=== PATIENT | female | born 1965 | race Caucasian/White ===

== ENCOUNTER 2018-12-27 17:06 | Observation (INO) | payer BC ==
[2018-12-27] MEDS: fentaNYL 100 MCG/2 ML SDV IVPUSH ONE ×3 (17:42→20:17)
[2018-12-27] MEDS: Lactated Ringers 1,000 ML IV SCH (17:43)
[2018-12-27] MEDS: Ondansetron 4 MG/2 ML SDV IVPUSH ONE (17:44)
[2018-12-27 17:52] LABS: CHLORIDE,CL 102 mmol/L (98-107); SODIUM,NA 140 mmol/L (136-145)
[2018-12-27 19:07] VITALS: BP 152/87; PULSE 61
[2018-12-27] MEDS: Sodium Chloride 0.9% 10 ML Syringe FLUSH PRN (20:17)
--- NOTE | 2018-12-27 23:56 | PCM.HP.2 ---
H&P History of Present Illness - General Date of Service: 12/27/18 Admit Problem/Dx: Admission Diagnosis/Problem Admission Diagnosis/Problem Abdominal pain in female Source of Information: Patient, Old Records, Significant Other () History Limitations: Reports: No Limitations - History of Present Illness Onset of Symptoms: Reports: Today, Sudden Symptom Onset Date: 12/27/18 Symptom Onset Time: 12:00 Duration of Symptoms: Reports: Hour(s):, Getting Worse, Other ( pressure in abdomen, feels like stomach will explode) Location: Reports: Abdomen Quality: Reports: Pressure Severity: Severe Improves with: Reports: Immobilization, Rest Worsens with: Reports: Eating Associated Symptoms: Reports: Weakness - Related Data Allergies/Adverse Reactions: Allergies Allergy/AdvReac Type Severity Reaction Status Date / Time zolpidem [From Ambien] Allergy unknown Verified 12/27/18 17:42 Home Medications: Home Meds Temazepam [Restoril] 15 mg PO BEDTIME PRN 03/06/14 [History] buPROPion [Wellbutrin XL] 150 mg PO BID 03/06/14 [History] Aspirin [Ecotrin EC] 81 mg PO Q3D 04/07/16 [History] Cyanocobalamin (Vitamin B-12) [Cyanocobalamin Injection] 1,000 mcg IJ ASDIRECTED 04/07/16 [History] Multivitamin [Multi-Vitamin Daily] 1 tab PO DAILY 04/07/16 [History] Aspirin 1 tab PO Q72H 12/27/18 [History] B&C/FA/Zinc/Copper Oxide/Vit E [Stress B-Complex Tablet] 1 tab PO DAILY [History] Biotin/Keratin [Biotin Plus Keratin Tablet] 1 tab PO DAILY 12/27/18 [History] Calc/D3/Mag/Zn/Forge Operator/Juan/Badger [Calcium 600 MG Plus Vit D] 1 each PO DAILY [History] Cholecalciferol (Vitamin D3) [Vitamin D3] 400 mg PO DAILY 12/27/18 [History] Cyanocobalamin (Vitamin B-12) [Vitamin B-12] 1,000 mcg IM ASDIRECTED 12/27/18 [ History] DULoxetine HCl [Duloxetine HCl] 1 cap PO DAILY 12/27/18 [History] Famciclovir 1 tab PO TID PRN 12/27/18 [History] Iron,Carbonyl [Iron Chews] 1 tab PO BID 12/27/18 [History] Lisinopril 1 tab PO DAILY 12/27/18 [History] Melatonin 10 mg PO BEDTIME 12/27/18 [History] Metoprolol Succinate 25 mg PO DAILY 12/27/18 [History] Naltrexone 25 mg PO BID 12/27/18 [History] Tolterodine Tartrate [Tolterodine Tartrate ER] 1 tab PO DAILY 12/27/18 [History] amLODIPine Besylate [Amlodipine Besylate] 5 mg PO DAILY 12/27/18 [History] diphenhydrAMINE [Benadryl] 25 mg PO BEDTIME 12/27/18 [History] Past Medical History HEENT History: Reports: Other (See Below) Other HEENT History: multiple eustation tubes placed as a child Cardiovascular History: Reports: Hypertension Respiratory History: Reports: None Musculoskeletal History: Reports: Fracture Other Musculoskeletal History: degenerative disc disease in [place] knees Neurological History: Reports: None Psychiatric History: Reports: Anxiety, Depression Endocrine/Metabolic History: Reports: None Hematologic History: Reports: Iron Deficiency Immunologic History: Reports: None Oncologic (Cancer) History: Reports: None Dermatologic History: Reports: None - Past Surgical History GI Surgical History: Reports: Appendectomy, Bariatric Procedure, Cholecystectomy , Colonoscopy Female Surgical History: Reports: Tubal Ligation Social & Family History - Family History Cardiac: Reports: Blood Clots/VTE/DVT, CAD Respiratory: Reports: PE : Reports: Other (See Below) Other Family History: Chronic kidney disease Oncologic: Reports: Colon - Caffeine Use Caffeine Use: Reports: None - Living Situation & Occupation Living situation: Reports: , with Family Occupation: Employed H&P Review of Systems - Review of Systems: Review Of Systems: See Below General: Reports: Weakness, Decreased Appetite HEENT: Reports: No Symptoms, Dysphasia, Ear Pain, Headaches Pulmonary: Reports: No Symptoms, Shortness of Breath Cardiovascular: Reports: No Symptoms Gastrointestinal: Reports: No Symptoms, Decreased Appetite Genitourinary: Reports: No Symptoms Musculoskeletal: Reports: No Symptoms Skin: Reports: No Symptoms Psychiatric: Reports: No Symptoms Neurological: Reports: No Symptoms Hematologic/Lymphatic: Reports: No Symptoms Immunologic: Reports: No Symptoms Exam - Exam Exam: See Below - Vital Signs Vital Signs: Last Vital Signs Temp 97.8 F 12/27/18 17:15 Pulse 61 12/27/18 17:15 Resp 21 H 12/27/18 17:15 BP 152/87 H 12/27/18 17:15 Pulse Ox 94 L 12/27/18 19:50 - Exam General: Alert, Oriented, Cooperative HEENT: Hearing Intact, Mucosa Moist & [place], TMs Clear Neck: Trachea Midline, +2 Carotid Pulse wo Bruit Lungs: Clear to Auscultation, Normal Respiratory Effort, Rhonchi Cardiovascular: Regular Rate, Regular Rhythm GI/Abdominal Exam: Distended, Guarding, Rebound, Tender, Abnormal Bowel Sounds (Female) Exam: Deferred Rectal (Female) Exam: Deferred Skin: Warm, Dry, Intact Neurological: Reflexes Equal Bilateral, Strength Equal Bilateral, Normal Gait ( walking with a wheeled wqlker) Neuro Extensive - Mental Status: Alert, Normal Mood/Affect, Normal Cognition, Memory Intact - Patient Data Lab Results Last 24 hrs: Laboratory Results - last 24 hr 12/27/18 12/27/18 Range/Units 17:34 17:34 WBC 6.5 (4.0-10.2) K/uL RBC 4.39 (3.77-5.09) M/uL Hgb 12.8 D (11.7-15.5) g/dL Hct 39.5 (34.0-46.0) % MCV 90.0 D (84.0-98.0) fL MCH 29.2 (28.2-33.3) pg MCHC 32.4 (31.7-36.0) g/dL RDW 13.5 (11.2-14.1) % Plt Count 214 (150-350) K/uL Neut % (Auto) 84.2 H (45.0-80.0) % Lymph % (Auto) 10.7 (10.0-50.0) % [place] % (Auto) 4.3 (2.0-14.0) % Eos % (Auto) 0.3 (0.0-5.0) % Baso % (Auto) 0.5 (0.0-2.0) % Neut # (Auto) 5.51 (1.40-7.00) K/uL Lymph # (Auto) 0.70 (0.50-3.50) K/uL [place] # (Auto) 0.28 (0.00-1.00) K/uL Eos # (Auto) 0.02 (0.00-0.50) K/uL Baso # (Auto) 0.03 (0.00-0.20) K/uL Sodium 140 (136-145) mmol/L Potassium 3.7 (3.5-5.1) mmol/L Chloride 102 (98-107) mmol/L Carbon Dioxide 28.9 (21.0-32.0) mmol/L BUN 19 H (7-18) mg/dL Creatinine 0.81 (0.51-1.17) mg/dL Est Cr Clr Drug Dosing TNP Estimated GFR (MDRD) > 60 mL/min Glucose 129 H (74-106) mg/dL Calcium 9.2 (8.5-10.1) mg/dL Total Bilirubin 0.3 (0.2-1.0) mg/dL AST 34 (15-37) U/L ALT 44 (12-78) U/L Alkaline Phosphatase 132 H (46-116) IU/L C-Reactive Protein < 0.1 (<=0.9) mg/dL Total Protein 6.8 (6.4-8.2) g/dL Albumin 4.0 (3.4-5.0) g/dL Amylase 89 (25-115) U/L Lipase 230 (73-393) U/L Result Diagrams: 12/27/18 17:34 12/27/18 17:34 - Problem List (1) Anemia SNOMED Code(s): 984954739 ICD Code: D64.9 - ANEMIA, UNSPECIFIED Status: Acute Priority: Medium Problem Details: Compliance with previously recommended iron supplementation, multivitamins, and vitamin B12 supplementation encouraged secondary to her previous gastric bypass (2) Colon obstruction SNOMED Code(s): 99822927 ICD Code: K56.609 - UNSP INTESTNL OBST, UNSP TO PARTIAL VERSUS COMPLETE OBST Status: Acute Priority: High (3) Mixed anxiety and depressive disorder SNOMED Code(s): 872279432 ICD Code: F41.8 - OTHER SPECIFIED ANXIETY DISORDERS Status: Acute Priority: Medium Problem Details: Stable by history with exception of her secondary insomnia. She was cautioned not to use Tylenol PM and Restoril concurrently as she did yesterday. Tylenol PM should actually be discontinued as per discharge instructions for further adjustment of her medications per instructions from her medical provider (4) Upper respiratory infection SNOMED Code(s): 94315777 ICD Code: J06.9 - ACUTE UPPER RESPIRATORY INFECTION, UNSPECIFIED Status: Acute Priority: High Onset Date: 03/06/14 Problem Details: Viral infection as above with secondary mild leukopenia Problem List Initiated/Reviewed/Updated: Yes Orders Last 24hrs: Active Orders 24 hr Category Date Time Status Patient Status [ADT] Routine ADT 12/27/18 19:26 Active NG [Gastrointestinal Tube Mgmt] [RC] ASDIRECTED Care 12/27/18 19:25 Active Oxygen Therapy [RC] PRN Care 12/27/18 19:26 Active Ready for Discharge [RC] PER UNIT ROUTINE Care 12/27/18 19:32 Active VTE/DVT Education [RC] PER UNIT ROUTINE Care 12/27/18 19:26 Active Vital Signs [RC] Q4H Care 12/27/18 19:26 Active Abdomen Series w Chest 1V [CR] Routine Exams 12/27/18 17:18 Taken Chest 1V Frontal [CR] Routine Exams 12/27/18 19:59 Taken URINALYSIS W/MICROSCOPIC [UA W/MICROSCOPIC] [URIN] Lab 12/27/18 17:15 Ordered Routine NG [Nasogastric Orogastric Tube Insertion] [OM.PC] Oth 12/27/18 19:25 Ordered Routine Saline Lock Insert [OM.PC] Routine Oth 12/27/18 17:44 Ordered Resuscitation Status Routine Resus Stat 12/27/18 19:26 Ordered
--- NOTE | 2018-12-28 00:51 | PCM.DCSUM1 ---
Discharge Summary - Hospital Course Diagnosis: Stroke: No - Discharge Data Discharge Date: 12/27/18 Discharge Disposition: DC/Tfer to Acute Hospital 02 Condition: Good - Referral to Home Health Primary Care Physician: Padmini Morrell MD - Discharge Diagnosis/Problem(s) (1) Colon obstruction SNOMED Code(s): 25475188 ICD Code: K56.609 - UNSP INTESTNL OBST, UNSP TO PARTIAL VERSUS COMPLETE OBST Status: Acute Priority: High (2) Anemia SNOMED Code(s): 199424709 ICD Code: D64.9 - ANEMIA, UNSPECIFIED Status: Acute Priority: Medium Problem Details: Compliance with previously recommended iron supplementation, multivitamins, and vitamin B12 supplementation encouraged secondary to her previous gastric bypass (3) Mixed anxiety and depressive disorder SNOMED Code(s): 932317275 ICD Code: F41.8 - OTHER SPECIFIED ANXIETY DISORDERS Status: Acute Priority: Medium Problem Details: Stable by history with exception of her secondary insomnia. She was cautioned not to use Tylenol PM and Restoril concurrently as she did yesterday. Tylenol PM should actually be discontinued as per discharge instructions for further adjustment of her medications per instructions from her medical provider - Patient Instructions Diet: NPO Activity: No Strenuous Activities, Rest and Relax Today Driving: Do Not Drive Showering/Bathing: May Shower Notify Provider of: Swelling and Redness (ribs), Nausea and/or Vomiting - Discharge Plan *PRESCRIPTION DRUG MONITORING PROGRAM REVIEWED*: Not Applicable *COPY OF PRESCRIPTION DRUG MONITORING REPORT IN PATIENT ODALIS: Not Applicable Home Medications: Home Meds Temazepam [Restoril] 15 mg PO BEDTIME PRN 03/06/14 [History] buPROPion [Wellbutrin XL] 150 mg PO BID 03/06/14 [History] Aspirin [Ecotrin EC] 81 mg PO Q3D 04/07/16 [History] Cyanocobalamin (Vitamin B-12) [Cyanocobalamin Injection] 1,000 mcg IJ ASDIRECTED 04/07/16 [History] Multivitamin [Multi-Vitamin Daily] 1 tab PO DAILY 04/07/16 [History] Aspirin 1 tab PO Q72H 12/27/18 [History] B&C/FA/Zinc/Copper Oxide/Vit E [Stress B-Complex Tablet] 1 tab PO DAILY [History] Biotin/Keratin [Biotin Plus Keratin Tablet] 1 tab PO DAILY 12/27/18 [History] Calc/D3/Mag/Zn/Automobile Service Station Attendant/Juan/Newcomb [Calcium 600 MG Plus Vit D] 1 each PO DAILY [History] Cholecalciferol (Vitamin D3) [Vitamin D3] 400 mg PO DAILY 12/27/18 [History] Cyanocobalamin (Vitamin B-12) [Vitamin B-12] 1,000 mcg IM ASDIRECTED 12/27/18 [ History] DULoxetine HCl [Duloxetine HCl] 1 cap PO DAILY 12/27/18 [History] Famciclovir 1 tab PO TID PRN 12/27/18 [History] Iron,Carbonyl [Iron Chews] 1 tab PO BID 12/27/18 [History] Lisinopril 1 tab PO DAILY 12/27/18 [History] Melatonin 10 mg PO BEDTIME 12/27/18 [History] Metoprolol Succinate 25 mg PO DAILY 12/27/18 [History] Naltrexone 25 mg PO BID 12/27/18 [History] Tolterodine Tartrate [Tolterodine Tartrate ER] 1 tab PO DAILY 12/27/18 [History] amLODIPine Besylate [Amlodipine Besylate] 5 mg PO DAILY 12/27/18 [History] diphenhydrAMINE [Benadryl] 25 mg PO BEDTIME 12/27/18 [History] Oxygen Therapy Mode: Room Air Oxygen Flow Rate (L/min): 2 - Discharge Summary/Plan Comment DC Time >30 min.: No Discharge Summary/Plan Comment: 12/27/18 Ailyn Calzada MD She developed severe abdomenal pain today. Not passing any gas. X-rays suggested a bowel etention. [facility] was called. Ramón with Dr. Candelario and he will adcceopt her for transfur, - Patient Data Vitals - Most Recent: Last Vital Signs Temp 97.8 F 12/27/18 17:15 Pulse 61 12/27/18 17:15 Resp 21 H 12/27/18 17:15 BP 152/87 H 12/27/18 17:15 Pulse Ox 94 L 12/27/18 19:50 Lab Results - Last 24 hrs: Laboratory Results - last 24 hr 12/27/18 12/27/18 Range/Units 17:34 17:34 WBC 6.5 (4.0-10.2) K/uL RBC 4.39 (3.77-5.09) M/uL Hgb 12.8 D (11.7-15.5) g/dL Hct 39.5 (34.0-46.0) % MCV 90.0 D (84.0-98.0) fL MCH 29.2 (28.2-33.3) pg MCHC 32.4 (31.7-36.0) g/dL RDW 13.5 (11.2-14.1) % Plt Count 214 (150-350) K/uL Neut % (Auto) 84.2 H (45.0-80.0) % Lymph % (Auto) 10.7 (10.0-50.0) % [place] % (Auto) 4.3 (2.0-14.0) % Eos % (Auto) 0.3 (0.0-5.0) % Baso % (Auto) 0.5 (0.0-2.0) % Neut # (Auto) 5.51 (1.40-7.00) K/uL Lymph # (Auto) 0.70 (0.50-3.50) K/uL [place] # (Auto) 0.28 (0.00-1.00) K/uL Eos # (Auto) 0.02 (0.00-0.50) K/uL Baso # (Auto) 0.03 (0.00-0.20) K/uL Sodium 140 (136-145) mmol/L Potassium 3.7 (3.5-5.1) mmol/L Chloride 102 (98-107) mmol/L Carbon Dioxide 28.9 (21.0-32.0) mmol/L BUN 19 H (7-18) mg/dL Creatinine 0.81 (0.51-1.17) mg/dL Est Cr Clr Drug Dosing TNP Estimated GFR (MDRD) > 60 mL/min Glucose 129 H (74-106) mg/dL Calcium 9.2 (8.5-10.1) mg/dL Total Bilirubin 0.3 (0.2-1.0) mg/dL AST 34 (15-37) U/L ALT 44 (12-78) U/L Alkaline Phosphatase 132 H (46-116) IU/L C-Reactive Protein < 0.1 (<=0.9) mg/dL Total Protein 6.8 (6.4-8.2) g/dL Albumin 4.0 (3.4-5.0) g/dL Amylase 89 (25-115) U/L Lipase 230 (73-393) U/L Med Orders - Current: Current Medications Discontinued Medications Fentanyl (Sublimaze) 50 mcg IVPUSH ONETIME ONE Stop: 12/27/18 17:18 Last Admin: 12/27/18 17:42 Dose: 50 mcg Fentanyl (Sublimaze) 50 mcg IVPUSH ONETIME ONE Stop: 12/27/18 18:21 Last Admin: 12/27/18 18:39 Dose: 50 mcg Fentanyl (Sublimaze) 50 mcg IVPUSH ONETIME ONE Stop: 12/27/18 20:12 Last Admin: 12/27/18 20:17 Dose: 50 mcg Lactated Ringer's (Ringers, Lactated) 1,000 mls @ 100 mls/hr IV ASDIRECTED BASIM Last Admin: 12/27/18 17:43 Dose: 100 mls/hr Ondansetron HCl (Zofran) 4 mg IVPUSH ONETIME ONE Stop: 12/27/18 17:19 Last Admin: 12/27/18 17:44 Dose: 4 mg Sodium Chloride (Saline Flush) 10 ml FLUSH ASDIRECTED PRN PRN Reason: Keep Vein Open Last Admin: 12/27/18 20:17 Dose: 10 ml
== END 2018-12-27 20:25 ==
LOC: LL.MS 17:07
PROVIDERS: ADMIT Family Medicine; ATTEND Family Medicine
DX: K56.609 Unspecified intestinal obstruction, unspecified as to partial versus complete obstruction (principal); D64.9 Anemia, unspecified; I10 Essential (primary) hypertension; J06.9 Acute upper respiratory infection, unspecified; F41.3 Other mixed anxiety disorders; F32.9 Major depressive disorder, single episode, unspecified; G47.00 Insomnia, unspecified; Z88.8 Allergy status to other drugs, medicaments and biological substances; Z79.82 Long term (current) use of aspirin; Z79.899 Other long term (current) drug therapy
CPT/HCPCS: 36415; 71045; 74022; 80053; 82150; 83690; 85025; 86140; 96361; 96374; 96375; 96376; J2405; J3010; J7120

== ENCOUNTER 2019-01-18 12:00 | Emergency (ER) | payer BC ==
[2019-01-18 12:15] VITALS: BP 132/73; PULSE 88
--- NOTE | 2019-01-18 12:58 | EDM.PDOC ---
ED HPI GENERAL MEDICAL PROBLEM - General Chief Complaint: Abdominal Pain Stated Complaint: dont feel good, cant keep water down Time Seen by Provider: 01/18/19 12:15 Source of Information: Reports: Patient History Limitations: Reports: No Limitations - History of Present Illness INITIAL COMMENTS - FREE TEXT/NARRATIVE: Patient presents to ER from clinic after experiencing multiple loose stools and emesis since around 6am this morning. Didn't feel well last night. [place] bloated , mild nausea. Thought she was constipated and took laxatives. Feels hot/ cold. Denies HEENT complaints/cough/cold symptoms. No blood noted in emesis/ stool. No chest pain/SOB. Denies UTI complaints/ changes. also had several episodes of emesis this morning. He blamed it on flu shot. No other reported changes. Hx gastric bypass. Recent hernia repair in December. Left Abdominal Pain Score (Numeric/FACES): 6 - Related Data Allergies Allergy/AdvReac Type Severity Reaction Status Date / Time zolpidem [From Ambien] Allergy unknown Verified 01/18/19 12:22 Home Meds: Home Meds Temazepam [Restoril] 15 mg PO BEDTIME PRN 03/06/14 [History] buPROPion [Wellbutrin XL] 150 mg PO BID 03/06/14 [History] Aspirin [Ecotrin EC] 81 mg PO Q3D 04/07/16 [History] Multivitamin [Multi-Vitamin Daily] 1 tab PO DAILY 04/07/16 [History] B&C/FA/Zinc/Copper Oxide/Vit E [Stress B-Complex Tablet] 1 tab PO DAILY [History] Biotin/Keratin [Biotin Plus Keratin Tablet] 1 tab PO DAILY 12/27/18 [History] Calc/D3/Mag/Zn/Corrugator/Juan/[place] [Calcium 600 MG Plus Vit D] 1 each PO DAILY [History] Cholecalciferol (Vitamin D3) [Vitamin D3] 400 mg PO DAILY 12/27/18 [History] Cyanocobalamin (Vitamin B-12) [Vitamin B-12] 1,000 mcg IM ASDIRECTED 12/27/18 [ History] DULoxetine HCl [Duloxetine HCl] 1 cap PO DAILY 12/27/18 [History] Famciclovir 1 tab PO TID PRN 12/27/18 [History] Iron,Carbonyl [Iron Chews] 1 tab PO BID 12/27/18 [History] Lisinopril 1 tab PO DAILY 12/27/18 [History] Melatonin 10 mg PO BEDTIME 12/27/18 [History] Metoprolol Succinate 25 mg PO DAILY 12/27/18 [History] Naltrexone 25 mg PO BID 12/27/18 [History] Tolterodine Tartrate [Tolterodine Tartrate ER] 1 tab PO DAILY 12/27/18 [History] amLODIPine Besylate [Amlodipine Besylate] 5 mg PO DAILY 12/27/18 [History] Cetirizine [ZyrTEC] 10 mg PO BID 01/18/19 [History] Vitamin B Complex [B Complex] 1 each PO DAILY 01/18/19 [History] Past Medical History HEENT History: Reports: Other (See Below) Other HEENT History: multiple eustation tubes placed as a child Cardiovascular History: Reports: Hypertension Respiratory History: Reports: None Musculoskeletal History: Reports: Fracture Other Musculoskeletal History: degenerative disc disease in [place] knees Neurological History: Reports: None Psychiatric History: Reports: Anxiety, Depression Endocrine/Metabolic History: Reports: None Hematologic History: Reports: Iron Deficiency Immunologic History: Reports: None Oncologic (Cancer) History: Reports: None Dermatologic History: Reports: None - Past Surgical History GI Surgical History: Reports: Appendectomy, Bariatric Procedure, Cholecystectomy , Colonoscopy Female Surgical History: Reports: Tubal Ligation Social & Family History - Family History Cardiac: Reports: Blood Clots/VTE/DVT, CAD Respiratory: Reports: PE : Reports: Other (See Below) Other Family History: Chronic kidney disease Oncologic: Reports: Colon - Caffeine Use Caffeine Use: Reports: None - Living Situation & Occupation Living situation: Reports: , with Family Occupation: Employed [employer] GENERAL - Review of Systems Review Of Systems: See Below Constitutional: Reports: Malaise, Decreased Appetite, Other (hot/cold feelings earlier). Denies: Fever, Weakness, Diaphoresis HEENT: Reports: No Symptoms Respiratory: Reports: No Symptoms. Denies: Pleuritic Chest Pain, Cough Cardiovascular: Reports: No Symptoms. Denies: Chest Pain GI/Abdominal: Reports: Abdominal Pain (has discomfort in area where betsy from recent hernia repair were removed, as well as LUQ pain), Constipation, Diarrhea, Decreased Appetite, Nausea, Vomiting. Denies: Black Stool, Bloody Stool, Difficulty Swallowing, Distension, Hematemesis, Hematochezia, Melena : Reports: No Symptoms. Denies: Dysuria, Frequency, Hematuria Musculoskeletal: Reports: No Symptoms Skin: Reports: No Symptoms Neurological: Reports: No Symptoms Psychiatric: Reports: No Symptoms Hematologic/Lymphatic: Reports: No Symptoms ED EXAM, GENERAL - Physical Exam Exam: See Below Exam Limited By: No Limitations General Appearance: Alert, WD/WN, Other (tearful at times) Eye Exam: Bilateral Eye: EOMI, PERRL Ears: Normal External Exam Nose: No: Nasal Deformity, Nasal Swelling, Nasal Drainage Throat/Mouth: Normal Lips, Normal Voice, No Airway Compromise Head: Atraumatic, Normocephalic Neck: Supple, Non-Tender, Full Range of Motion Respiratory/Chest: No Respiratory Distress, Lungs Clear, Normal Breath Sounds, No Accessory Muscle Use, Chest Non-Tender Cardiovascular: Regular Rate, Rhythm, No Murmur GI/Abdominal: Guarding (mild), Tender (some discomfort in epigastric and LUQ area with palpation. ), Abnormal Bowel Sounds (decreased throughout). No: Distended, Rigid, Rebound (Female) Exam: Deferred Rectal (Female) Exam: Deferred Back Exam: No: CVA Tenderness (L), CVA Tenderness (R) Extremities: Normal Range of Motion Neurological: Alert, Oriented, Normal Cognition, No Motor/Sensory Deficits Psychiatric: Tearful Skin Exam: Warm, Dry, Intact, Normal Color Course - Vital Signs Last Recorded V/S: Last Vital Signs Temp 37.6 C 01/18/19 12:14 Pulse 88 01/18/19 12:14 Resp 20 01/18/19 12:14 BP 132/73 01/18/19 12:14 Pulse Ox 97 01/18/19 12:14 - Orders/Labs/Meds Orders: Active Orders 24 hr Category Date Time Status Abdomen 2V AP Flat Upright [CR] Stat Exams 01/18/19 12:31 Taken HEPATITIS PANEL (4) [REF] Routine Lab 01/18/19 13:16 Ordered UA W/MICROSCOPIC [URIN] Stat Lab 01/18/19 12:30 Ordered Sodium Chloride 0.9% [Normal Saline] 1,000 ml Med 01/18/19 12:55 Active IV .BOLUS Sodium Chloride 0.9% [Normal Saline] 1,000 ml Med 01/18/19 13:49 Ordered IV .BOLUS Sodium Chloride 0.9% [Saline Flush] Med 01/18/19 12:30 Active 10 ml FLUSH ASDIRECTED PRN Saline Lock Insert [OM.PC] Routine Oth 01/18/19 12:31 Ordered Medication Orders Sodium Chloride (Normal Saline) 1,000 mls @ 999 mls/hr IV .BOLUS ONE Stop: 01/18/19 13:55 Last Admin: 01/18/19 12:59 Dose: 999 mls/hr Sodium Chloride (Saline Flush) 10 ml FLUSH ASDIRECTED PRN PRN Reason: Keep Vein Open Last Admin: 01/18/19 13:01 Dose: 10 ml Labs: Laboratory Tests 01/18/19 01/18/19 01/18/19 Range/Units 12:30 12:35 12:35 WBC 11.8 H (4.0-10.2) K/uL RBC 4.89 (3.77-5.09) M/uL Hgb 14.1 (11.7-15.5) g/dL Hct 44.4 (34.0-46.0) % MCV 90.8 (84.0-98.0) fL MCH 28.8 (28.2-33.3) pg MCHC 31.8 (31.7-36.0) g/dL RDW 14.2 H (11.2-14.1) % Plt Count 314 D (150-350) K/uL Neut % (Auto) 93.8 H (45.0-80.0) % Lymph % (Auto) 2.3 L (10.0-50.0) % [place] % (Auto) 2.0 (2.0-14.0) % Eos % (Auto) 1.8 (0.0-5.0) % Baso % (Auto) 0.1 (0.0-2.0) % Neut # (Auto) 11.07 H (1.40-7.00) K/uL Lymph # (Auto) 0.27 L (0.50-3.50) K/uL [place] # (Auto) 0.24 (0.00-1.00) K/uL Eos # (Auto) 0.21 (0.00-0.50) K/uL Baso # (Auto) 0.01 (0.00-0.20) K/uL Sodium 143 (136-145) mmol/L Potassium 3.9 (3.5-5.1) mmol/L Chloride 105 (98-107) mmol/L Carbon Dioxide 27.0 (21.0-32.0) mmol/L BUN 17 (7-18) mg/dL Creatinine 0.79 (0.51-1.17) mg/dL Est Cr Clr Drug Dosing 72.61 mL/min Estimated GFR (MDRD) > 60 mL/min Glucose 109 H (74-106) mg/dL Lactic Acid (0.4-2.0) mmol/L Calcium 8.9 (8.5-10.1) mg/dL Magnesium 1.8 (1.8-2.4) mg/dL Total Bilirubin 0.4 (0.2-1.0) mg/dL AST 52 H (15-37) U/L ALT 81 H (12-78) U/L Alkaline Phosphatase 117 H (46-116) IU/L Total Protein 6.9 (6.4-8.2) g/dL Albumin 3.7 (3.4-5.0) g/dL Amylase 70 (25-115) U/L Lipase 119 (73-393) U/L 01/18/19 Range/Units 12:35 WBC (4.0-10.2) K/uL RBC (3.77-5.09) M/uL Hgb (11.7-15.5) g/dL Hct (34.0-46.0) % MCV (84.0-98.0) fL MCH (28.2-33.3) pg MCHC (31.7-36.0) g/dL RDW (11.2-14.1) % Plt Count (150-350) K/uL Neut % (Auto) (45.0-80.0) % Lymph % (Auto) (10.0-50.0) % [place] % (Auto) (2.0-14.0) % Eos % (Auto) (0.0-5.0) % Baso % (Auto) (0.0-2.0) % Neut # (Auto) (1.40-7.00) K/uL Lymph # (Auto) (0.50-3.50) K/uL [place] # (Auto) (0.00-1.00) K/uL Eos # (Auto) (0.00-0.50) K/uL Baso # (Auto) (0.00-0.20) K/uL Sodium (136-145) mmol/L Potassium (3.5-5.1) mmol/L Chloride (98-107) mmol/L Carbon Dioxide (21.0-32.0) mmol/L BUN (7-18) mg/dL Creatinine (0.51-1.17) mg/dL Est Cr Clr Drug Dosing mL/min Estimated GFR (MDRD) mL/min Glucose (74-106) mg/dL Lactic Acid 1.2 (0.4-2.0) mmol/L Calcium (8.5-10.1) mg/dL Magnesium (1.8-2.4) mg/dL Total Bilirubin (0.2-1.0) mg/dL AST (15-37) U/L ALT (12-78) U/L Alkaline Phosphatase (46-116) IU/L Total Protein (6.4-8.2) g/dL Albumin (3.4-5.0) g/dL Amylase (25-115) U/L Lipase (73-393) U/L Meds: Medications Generic Name Dose Route Start Last Admin Trade Name Freq PRN Reason Stop Dose Admin Sodium Chloride 1,000 mls @ 999 mls/hr 01/18/19 12:55 01/18/19 12:59 Normal Saline IV 01/18/19 13:55 999 mls/hr .BOLUS ONE Administration Sodium Chloride 10 ml 01/18/19 12:30 01/18/19 13:01 Saline Flush FLUSH 10 ml ASDIRECTED PRN Administration Keep Vein Open Discontinued Medications Generic Name Dose Route Start Last Admin Trade Name Freq PRN Reason Stop Dose Admin Ondansetron HCl 4 mg 01/18/19 12:55 01/18/19 12:59 Zofran IVPUSH 01/18/19 12:56 4 mg ONETIME ONE Administration - Radiology Interpretation Free Text/Narrative:: abdominal flat/upright shows what appears to be a few scattered air/fluid levels , increased gas in LUQ but no distension. No obstruction appreciated. Pending Radiology review. - Re-Assessments/Exams Free Text/Narrative Re-Assessment/Exam: 01/18/19 13:54 NS bolus/Zofran ordered. Labs ordered. WBC mildly elevated. Also mild elevation of AST/ALT noted. Review of previous labs shows no previous elevation noted. Hepatitis panel added to labs. Chem/Amylase/Lipase overall unremarkable otherwise. Patient felt significantly improved after initial bolus of fluid and Zofran. Unable to produce UA specimen as of yet so second bolus ordered. Suspect viral gastroenteritis based on history/exam and also having emesis today. Hepatitis panel pending. Plan at this time is to discharge patient home given her improvement. She is to observe for changes and follow up as needed if symptoms worsen again. Departure - Departure Disposition: Home, Self-Care 01 Condition: Good Clinical Impression: LFT elevation Abdominal pain Qualifiers: Abdominal location: upper abdomen, unspecified Qualified Code(s): R10.10 - Upper abdominal pain, unspecified Vomiting Qualifiers: Vomiting type: unspecified Vomiting Intractability: non-intractable Nausea presence: with nausea Qualified Code(s): R11.2 - Nausea with vomiting, unspecified Diarrhea Qualifiers: Diarrhea type: unspecified type Qualified Code(s): R19.7 - Diarrhea, unspecified - Discharge Information *PRESCRIPTION DRUG MONITORING PROGRAM REVIEWED*: Not Applicable *COPY OF PRESCRIPTION DRUG MONITORING REPORT IN PATIENT ODALIS: Not Applicable Instructions: Viral Gastroenteritis, Adult, [id number] Referrals: SheetsaPdmini Chau MD [Primary Care Provider] - Forms: ED Department Discharge Additional Instructions: Rest. Avoid drinking/eating for now. Try sips of water around 5-6pm. If that goes ok, advance diet as tolerated. Recommend sticking with broth/fluid for rest of today. See how you feel/observe for changes. If you have worsening symptoms or if you do not see a significant amount of improvement within 24 hours, please return and get rechecked. - My Orders Last 24 Hours: My Active Orders 01/18/19 12:30 UA W/MICROSCOPIC [URIN] Stat Sodium Chloride 0.9% [Saline Flush] 10 ml FLUSH ASDIRECTED PRN 01/18/19 12:31 Abdomen 2V AP Flat Upright [CR] Stat Saline Lock Insert [OM.PC] Routine 01/18/19 12:55 Sodium Chloride 0.9% [Normal Saline] 1,000 ml IV .BOLUS 01/18/19 13:16 HEPATITIS PANEL (4) [REF] Routine 01/18/19 13:49 Sodium Chloride 0.9% [Normal Saline] 1,000 ml IV .BOLUS - Assessment/Plan Last 24 Hours: My Active Orders 01/18/19 12:30 UA W/MICROSCOPIC [URIN] Stat Sodium Chloride 0.9% [Saline Flush] 10 ml FLUSH ASDIRECTED PRN 01/18/19 12:31 Abdomen 2V AP Flat Upright [CR] Stat Saline Lock Insert [OM.PC] Routine 01/18/19 12:55 Sodium Chloride 0.9% [Normal Saline] 1,000 ml IV .BOLUS 01/18/19 13:16 HEPATITIS PANEL (4) [REF] Routine 01/18/19 13:49 Sodium Chloride 0.9% [Normal Saline] 1,000 ml IV .BOLUS
[2019-01-18] MEDS: Ondansetron 4 MG/2 ML SDV IVPUSH ONE (12:59)
[2019-01-18] MEDS: Sodium Chloride 0.9% 1,000 ML IV ONE ×2 (12:59→14:07)
[2019-01-18 13:00] LABS: CHLORIDE,CL 105 mmol/L (98-107); SODIUM,NA 143 mmol/L (136-145)
[2019-01-18] MEDS: Sodium Chloride 0.9% 10 ML Syringe FLUSH PRN (13:01)
== END 2019-01-18 15:30 | disposition home or self-care (01) ==
LOC: LL.ED 12:00
DX: R10.10 Upper abdominal pain, unspecified (principal); R11.2 Nausea with vomiting, unspecified; R19.7 Diarrhea, unspecified; R79.89 Other specified abnormal findings of blood chemistry; I10 Essential (primary) hypertension; F32.9 Major depressive disorder, single episode, unspecified; D64.9 Anemia, unspecified; Z79.82 Long term (current) use of aspirin; Z79.899 Other long term (current) drug therapy; Z88.8 Allergy status to other drugs, medicaments and biological substances; Z90.89 Acquired absence of other organs; Z90.49 Acquired absence of other specified parts of digestive tract; Z98.84 Bariatric surgery status
CPT/HCPCS: 36415; 74019; 80053; 80074; 81001; 82150; 83605; 83690; 83735; 85025; 96361; 96374; 99284-25; J2405; J7030

== ENCOUNTER 2020-01-03 19:02 | Emergency (ER) | payer BC ==
[2020-01-03] MEDS ORDERED: Morphine 10 MG/ML SDV IVPUSH ONE ×2 (19:26→20:35)
--- NOTE | 2020-01-03 19:35 | EDM.PDOC ---
ED HPI GENERAL MEDICAL PROBLEM - General Chief Complaint: Abdominal Pain Stated Complaint: ABDOMINAL PAIN Time Seen by Provider: 01/03/20 19:14 Source of Information: Reports: Patient History Limitations: Reports: No Limitations - History of Present Illness INITIAL COMMENTS - FREE TEXT/NARRATIVE: She presents to the emergency department complaining of severe lower abdominal pain. She reports a constant, severe pain in the lower abdomen bilaterally, left equal to right. Pain started about 2 hours earlier. She reports sudden onset. She feels bloated, but unable to have a bowel movement. She did have a normal bowel movement approximately 6 hours ago. No diarrhea. No blood in the stools. No nausea or vomiting. No fever or chills. She denies any other recent illness. She does have a history of a bowel obstruction about a year ago and states this pain feels similar. She did have a gastric bypass approximately 14 years ago. She denies ongoing problems with diarrhea or constipation. She reports normal bowel movements every 1 to 2 days. She denies any recent change in her diet. - Related Data Allergies Allergy/AdvReac Type Severity Reaction Status Date / Time zolpidem [From Ambien] Allergy unknown Verified 01/18/19 12:22 Home Meds: Home Meds Temazepam [Restoril] 15 mg PO BEDTIME PRN 03/06/14 [History] buPROPion [Wellbutrin XL] 150 mg PO BID 03/06/14 [History] Aspirin [Ecotrin EC] 81 mg PO Q3D 04/07/16 [History] Multivitamin [Multi-Vitamin Daily] 1 tab PO DAILY 04/07/16 [History] B,C/Folic/Zinc/Copper Ox/Vit E [Stress B-Complex Tablet] 1 tab PO DAILY 12/27/18 [History] Biotin/Keratin [Biotin Plus Keratin Tablet] 1 tab PO DAILY 12/27/18 [History] Calc/D3/Mag/Zn/Robert/Juan/[place] [Calcium 600 MG Plus Vit D] 1 each PO DAILY 12/27/18 [History] Cholecalciferol (Vitamin D3) [Vitamin D3] 5,000 mg PO BID 12/27/18 [History] Cyanocobalamin (Vitamin B-12) [Vitamin B-12] 1,000 mcg IM ASDIRECTED 12/27/18 [History] DULoxetine HCl [Duloxetine HCl] 1 cap PO DAILY 12/27/18 [History] Famciclovir 1 tab PO TID PRN 12/27/18 [History] Iron,Carbonyl [Iron Chews] 2 tab PO BID 12/27/18 [History] Melatonin 10 mg PO BEDTIME 12/27/18 [History] Metoprolol Succinate 25 mg PO DAILY 12/27/18 [History] Tolterodine Tartrate [Tolterodine Tartrate ER] 1 tab PO DAILY 12/27/18 [History] amLODIPine Besylate [Amlodipine Besylate] 5 mg PO DAILY 12/27/18 [History] lisinopriL [Lisinopril] 1 tab PO BID 12/27/18 [History] Cetirizine [ZyrTEC] 10 mg PO BID 01/18/19 [History] Vitamin B Complex [B Complex] 1 each PO DAILY 01/18/19 [History] Past Medical History HEENT History: Reports: Other (See Below) Other HEENT History: multiple eustation tubes placed as a child Cardiovascular History: Reports: Hypertension Respiratory History: Reports: None Gastrointestinal History: Reports: Other (See Below) Musculoskeletal History: Reports: Fracture Other Musculoskeletal History: degenerative disc disease in [place] knees Neurological History: Reports: None Psychiatric History: Reports: Anxiety, Depression Endocrine/Metabolic History: Reports: None Hematologic History: Reports: Iron Deficiency Immunologic History: Reports: None Oncologic (Cancer) History: Reports: None Dermatologic History: Reports: None - Infectious Disease History Infectious Disease History: Reports: Chicken Pox, Influenza, Mononucleosis - Past Surgical History GI Surgical History: Reports: Appendectomy, Bariatric Procedure, Cholecystectomy, Colonoscopy Female Surgical History: Reports: Tubal Ligation Social & Family History - Family History Family Medical History: Noncontributory Cardiac: Reports: Blood Clots/VTE/DVT, CAD Respiratory: Reports: PE : Reports: Other (See Below) Other Family History: Chronic kidney disease Oncologic: Reports: Colon - Caffeine Use Caffeine Use: Reports: None Other Caffeine Use: 2 per week - Living Situation & Occupation Living situation: Reports: , with Family Occupation: Employed ED ROS GENERAL - Review of Systems Review Of Systems: See Below Constitutional: Denies: Fever, Chills HEENT: Reports: No Symptoms Respiratory: Denies: Shortness of Breath, Cough Cardiovascular: Denies: Chest Pain, Palpitations GI/Abdominal: Reports: Abdominal Pain. Denies: Black Stool, Bloody Stool, Constipation, Diarrhea, Nausea : Denies: Dysuria, Frequency, Urgency Musculoskeletal: Reports: No Symptoms Skin: Reports: No Symptoms Neurological: Denies: Dizziness, Headache Psychiatric: Reports: Anxiety, Depression ED EXAM, GENERAL - Physical Exam Exam: See Below Exam Limited By: No Limitations General Appearance: Alert, WD/WN, Moderate Distress Head: Atraumatic, Normocephalic Neck: Normal Inspection, Non-Tender. No: Lymphadenopathy (L), Lymphadenopathy (R) Respiratory/Chest: No Respiratory Distress, Lungs Clear, Normal Breath Sounds Cardiovascular: Regular Rate, Rhythm, No Edema, No Murmur GI/Abdominal: Normal Bowel Sounds, Soft, No Distention, No Mass, Tender (Diffuse tenderness most severe in the lower quadrants bilaterally. No rebound tenderness.) (Female) Exam: Deferred Rectal (Female) Exam: Deferred Neurological: Alert, Oriented Course - Vital Signs Text/Narrative:: Patient was given 5 mg of morphine with some improvement in her pain. Blood work and urine were unremarkable. She was given a second dose of morphine but continued to have significant lower quadrant abdominal pain. CT scan indicated developing bowel obstruction. Case was discussed with Dr. Alvarez at [facility] in [place] and will transfer the patient there for monitoring and possible need for surgical intervention. Last Recorded V/S: Last Vital Signs Temp 36.1 C 01/03/20 19:10 Pulse 66 01/03/20 19:44 Resp 16 01/03/20 19:44 BP 167/88 H 01/03/20 19:44 Pulse Ox 100 01/03/20 19:44 - Orders/Labs/Meds Orders: Active Orders 24 hr Category Date Time Status Peripheral IV Care [RC] . DIRECTED Care 01/03/20 19:28 Active Abdomen w Cont [CT] Stat Exams 01/03/20 19:27 Taken Sodium Chloride 0.9% [Saline Flush] Med 01/03/20 19:28 Active 10 ml FLUSH ASDIRECTED PRN Peripheral IV Insertion Adult [OM.PC] Routine Oth 01/03/20 19:28 Ordered Medication Orders Sodium Chloride (Saline Flush) 10 ml FLUSH ASDIRECTED PRN PRN Reason: Keep Vein Open Last Admin: 01/03/20 20:38 Dose: 10 ml Documented by: Admin: 01/03/20 19:37 Dose: 10 ml Documented by: LEDY Labs: Laboratory Tests 01/03/20 01/03/20 01/03/20 Range/Units 19:20 19:20 20:50 WBC 5.2 (4.0-10.2) K/uL RBC 4.53 (3.77-5.09) M/uL Hgb 13.0 (11.7-15.5) g/dL Hct 40.7 (34.0-46.0) % MCV 89.8 (84.0-98.0) fL MCH 28.7 (28.2-33.3) pg MCHC 31.9 (31.7-36.0) g/dL RDW 13.7 (11.2-14.1) % Plt Count 246 (150-350) K/uL Neut % (Auto) 71.0 (45.0-80.0) % Lymph % (Auto) 20.3 (10.0-50.0) % [place] % (Auto) 7.9 (2.0-14.0) % Eos % (Auto) 0.4 (0.0-5.0) % Baso % (Auto) 0.4 (0.0-2.0) % Neut # (Auto) 3.70 (1.40-7.00) K/uL Lymph # (Auto) 1.06 (0.50-3.50) K/uL [place] # (Auto) 0.41 (0.00-1.00) K/uL Eos # (Auto) 0.02 (0.00-0.50) K/uL Baso # (Auto) 0.02 (0.00-0.20) K/uL Sodium 141 (136-145) mmol/L Potassium 4.2 (3.5-5.1) mmol/L Chloride 103 (98-107) mmol/L Carbon Dioxide 29.9 (21.0-32.0) mmol/L BUN 24 H (7-18) mg/dL Creatinine 0.91 (0.51-1.17) mg/dL Est Cr Clr Drug Dosing TNP Estimated GFR (MDRD) > 60 mL/min Glucose 111 H (74-106) mg/dL Calcium 8.8 (8.5-10.1) mg/dL Total Bilirubin 0.2 (0.2-1.0) mg/dL AST 25 (15-37) U/L ALT 41 (12-78) U/L Alkaline Phosphatase 132 H (46-116) IU/L Total Protein 6.6 (6.4-8.2) g/dL Albumin 3.6 (3.4-5.0) g/dL Specimen Type Urinblad Urine Color Yellow Urine Appearance Clear Urine pH 8.5 (5.0-9.0) Ur Specific [place] 1.015 (1.005-1.030) Urine Protein Negative (NEGATIVE) mg/dL Urine Glucose (UA) Negative (NEGATIVE) mg/dL Urine Ketones Trace H (NEGATIVE) mg/dL Urine Occult Blood Negative (NEGATIVE) Urine Nitrite Negative (NEGATIVE) Urine Bilirubin Negative (NEGATIVE) Urine Urobilinogen 0.2 (0.2-1.0) E.U./dL Ur Leukocyte Esterase Negative (NEGATIVE) Meds: Medications Generic Name Dose Route Start Last Admin Trade Name Freq PRN Reason Stop Dose Admin Sodium Chloride 10 ml 01/03/20 19:28 01/03/20 20:38 Saline Flush FLUSH 10 ml ASDIRECTED PRN Administration Keep Vein Open Discontinued Medications Generic Name Dose Route Start Last Admin Trade Name Freq PRN Reason Stop Dose Admin Iopamidol 100 ml 01/03/20 19:42 01/03/20 20:08 Isovue-300 (61%) IVPUSH 01/03/20 19:43 100 ml ONETIME ONE Administration Morphine Sulfate 5 mg 01/03/20 19:26 01/03/20 19:33 Morphine IVPUSH 01/03/20 19:27 5 mg ONETIME ONE Administration Morphine Sulfate 5 mg 01/03/20 20:35 01/03/20 20:37 Morphine IVPUSH 01/03/20 20:36 5 mg ONETIME ONE Administration Ondansetron HCl 4 mg 01/03/20 20:57 01/03/20 21:00 Zofran IVPUSH 01/03/20 20:58 4 mg ONETIME ONE Administration - Radiology Interpretation Free Text/Narrative:: CT scan of the abdomen showed numerous distal dilated small bowel loops with air-fluid levels with adjacent interloop fluid and mesenteric edema. Findings are compatible with developing obstruction. Departure - Departure Time of Disposition: 21:52 Disposition: DC/Tfer to Acute Hospital 02 Condition: Fair Clinical Impression: Small bowel obstruction Abdominal pain Qualifiers: Abdominal location: upper abdomen, unspecified Qualified Code(s): R10.10 - Upper abdominal pain, unspecified - Discharge Information *PRESCRIPTION DRUG MONITORING PROGRAM REVIEWED*: No *COPY OF PRESCRIPTION DRUG MONITORING REPORT IN PATIENT ODALIS: No Referrals: Julieta Bennett BEHAVIORAL SCIENCE CHAIR [Primary Care Provider] - Forms: ED Department Discharge Additional Instructions: Transfer to [facility] by ground ambulance. Sepsis Event Note (ED) - Evaluation Sepsis Screening Result: No Definite Risk - Focused Exam Vital Signs: Vital Signs Temp Pulse Resp BP Pulse Ox 01/03/20 19:44 66 16 167/88 H 100 01/03/20 19:10 36.1 C 60 20 150/102 H 100 - My Orders Last 24 Hours: My Active Orders 01/03/20 19:27 Abdomen w Cont [CT] Stat 01/03/20 19:28 Peripheral IV Care [RC] . DIRECTED Sodium Chloride 0.9% [Saline Flush] 10 ml FLUSH ASDIRECTED PRN Peripheral IV Insertion Adult [OM.PC] Routine - Assessment/Plan Last 24 Hours: My Active Orders 01/03/20 19:27 Abdomen w Cont [CT] Stat 01/03/20 19:28 Peripheral IV Care [RC] . DIRECTED Sodium Chloride 0.9% [Saline Flush] 10 ml FLUSH ASDIRECTED PRN Peripheral IV Insertion Adult [OM.PC] Routine
[2020-01-03] MEDS: Sodium Chloride 0.9% 10 ML Syringe FLUSH PRN ×3 (19:37→21:53)
[2020-01-03 19:41] LABS: CHLORIDE,CL 103 mmol/L (98-107); SODIUM,NA 141 mmol/L (136-145)
[2020-01-03] MEDS ORDERED: Iopamidol 612 MG/ML 100 ML Bottle IVPUSH ONE (19:42)
[2020-01-03 19:45] VITALS: PULSE 66
[2020-01-03] MEDS ORDERED: Ondansetron 4 MG/2 ML SDV IVPUSH ONE (20:57)
[2020-01-03] MEDS ORDERED: HYDROmorphone 0.5 MG/0.5 ML Syringe IVPUSH ONE (21:49)
[2020-01-03 21:50] VITALS: BP 142/63
[2020-01-03] MEDS ORDERED: LORazepam 2 MG/ML SDV IVPUSH ONE (22:27)
[2020-01-03] MEDS ORDERED: LORazepam 2 MG/ML SDV ONE (22:30)
== END 2020-01-03 22:35 ==
LOC: LL.ED 19:02
DX: K56.609 Unspecified intestinal obstruction, unspecified as to partial versus complete obstruction (principal); I10 Essential (primary) hypertension; F41.9 Anxiety disorder, unspecified; F32.9 Major depressive disorder, single episode, unspecified; Z88.8 Allergy status to other drugs, medicaments and biological substances; Z79.899 Other long term (current) drug therapy; Z79.82 Long term (current) use of aspirin
CPT/HCPCS: 36415; 74160; 80053; 81003; 85025; 96374; 96375; 96376; 99285-25; J1170; J2060; J2270; J2405; Q9967

== ENCOUNTER 2024-07-03 18:00 | Inpatient (IN) | payer BC ==
[2024-07-03] MEDS: Ondansetron 4 MG Tab.DIS ONE (18:19)
[2024-07-03] MEDS: Ondansetron 4 MG Tab.DIS PO ONE (18:21)
[2024-07-03] MEDS ORDERED: Naloxone 0.4 MG/ML SDV IVPUSH PRN (19:54)
[2024-07-03] MEDS ORDERED: Ondansetron 4 MG/2 ML SDV IVPUSH PRN (19:54)
[2024-07-03] MEDS: Sodium Chloride 0.9% 10 ML Syringe FLUSH PRN (20:39)
[2024-07-03] MEDS: Pantoprazole 40 MG Vial IV SCH (20:39)
[2024-07-03] MEDS: Sodium Chloride 0.9% 1,000 ML IV ONE (20:39)
[2024-07-03] MEDS: Lactated Ringers 1,000 ML IV SCH (23:26)
[2024-07-04 07:06] LABS: BASOPHILS ABSOLUTE AUTO 0.02 K/uL (0.00-0.20); BASOPHILS PERCENT AUTO 0.5 % (0.0-2.0); EOSINOPHILS ABSOLUTE AUTO 0.07 K/uL (0.00-0.50); EOSINOPHILS PERCENT AUTO 1.7 % (0.0-5.0); HEMATOCRIT 35.2 % (34.0-46.0); HEMOGLOBIN 11.7 g/dL (11.7-15.5); LYMPHOCYTES ABSOLUTE AUTO 1.37 K/uL (0.50-3.50); LYMPHOCYTES PERCENT AUTO 33.8 % (10.0-50.0); MEAN CORPUSCULAR HEMOGLOBIN 29.2 pg (28.2-33.3); MEAN CORPUSCULAR HGB CONC 33.2 g/dL (31.7-36.0); MEAN CORPUSCULAR VOLUME 87.8 fL (84.0-98.0); MONOCYTES ABSOLUTE AUTO 0.34 K/uL (0.00-1.00); MONOCYTES PERCENT AUTO 8.4 % (2.0-14.0); NEUTROPHILS ABSOLUTE AUTO 2.25 K/uL (1.40-7.00); NEUTROPHILS PERCENT AUTO 55.6 % (45.0-80.0); PLATELET COUNT,PLT 224 K/uL (150-350); RED BLOOD CELL COUNT 4.01 M/uL (3.77-5.09); WHITE BLOOD CELL COUNT,WBC 4.1 K/uL (4.0-10.2)
[2024-07-04 07:37] LABS: ANION GAP 4.4 meq/L (7-15); CALCIUM 8.2 mg/dL (8.5-10.1); CARBON DIOXIDE,CO2 30.6 mmol/L (21.0-32.0); CREATININE 0.7 mg/dL (0.51-1.17); EST CRCL DRUG DOSING (CG) 75.65 mL/min; POTASSIUM,K 3.6 mmol/L (3.5-5.1)
[2024-07-04] MEDS: Enoxaparin 40 MG/0.4 ML Syringe SUBCUT SCH (07:57)
[2024-07-04] MEDS ORDERED: Non-Formulary Medication 1 Each (Progesterone, Micronized [Progesterone] 100 MG Capsule) PO SCH (08:00)
[2024-07-04] MEDS: Morphine 2 MG/ML SYRINGE IVPUSH PRN (08:05)
[2024-07-04] MEDS: buPROPion 150 MG Tab.ER PO SCH (10:03)
[2024-07-04] MEDS: Lisinopril 20 MG Tab PO SCH (10:03)
[2024-07-04] MEDS: Escitalopram 10 MG Tab PO SCH (10:03)
[2024-07-04] MEDS: amLODIPine 5 MG Tab PO SCH (10:03)
[2024-07-04] MEDS: Metoprolol Succinate 25 MG Tab.ER PO SCH (10:04)
[2024-07-04] MEDS: Acetaminophen 325 MG Tab PO PRN (14:10)
[2024-07-05 07:34] LABS: BASOPHILS ABSOLUTE AUTO 0.03 K/uL (0.00-0.20); BASOPHILS PERCENT AUTO 0.8 % (0.0-2.0); EOSINOPHILS ABSOLUTE AUTO 0.08 K/uL (0.00-0.50); EOSINOPHILS PERCENT AUTO 2.2 % (0.0-5.0); HEMATOCRIT 36.1 % (34.0-46.0); HEMOGLOBIN 12.2 g/dL (11.7-15.5); LYMPHOCYTES ABSOLUTE AUTO 1.37 K/uL (0.50-3.50); LYMPHOCYTES PERCENT AUTO 37.8 % (10.0-50.0); MEAN CORPUSCULAR HEMOGLOBIN 29.4 pg (28.2-33.3); MEAN CORPUSCULAR HGB CONC 33.8 g/dL (31.7-36.0); MONOCYTES PERCENT AUTO 8.3 % (2.0-14.0); NEUTROPHILS ABSOLUTE AUTO 1.84 K/uL (1.40-7.00); NEUTROPHILS PERCENT AUTO 50.9 % (45.0-80.0); PLATELET COUNT,PLT 247 K/uL (150-350); RED BLOOD CELL COUNT 4.15 M/uL (3.77-5.09); RED CELL DISTRIBUTION WIDTH 12.8 % (11.2-14.1); WHITE BLOOD CELL COUNT,WBC 3.6 K/uL (4.0-10.2)
[2024-07-05 08:04] LABS: ANION GAP 7.8 meq/L (7-15); CALCIUM 8.5 mg/dL (8.5-10.1); CARBON DIOXIDE,CO2 33.7 mmol/L (21.0-32.0); CREATININE 0.64 mg/dL (0.51-1.17); EST CRCL DRUG DOSING (CG) 82.74 mL/min; MAGNESIUM 1.6 mg/dL (1.8-2.4); POTASSIUM,K 3.5 mmol/L (3.5-5.1)
[2024-07-05] MEDS: Magnesium Sulf/Wat 2 GM/50 mL 2 GM in Premix Bag 1 BAG IV ONE (09:35)
[2024-07-06 07:52] LABS: ALBUMIN 3.2 g/dL (3.4-5.0); BILIRUBIN TOTAL 0.4 mg/dL (0.2-1.0); CALCIUM 8.6 mg/dL (8.5-10.1); CARBON DIOXIDE,CO2 34.3 mmol/L (21.0-32.0); CREATININE 0.87 mg/dL (0.51-1.17); EST CRCL DRUG DOSING (CG) 60.87 mL/min; POTASSIUM,K 3.5 mmol/L (3.5-5.1); PROTEIN TOTAL,TP 5.8 g/dL (6.4-8.2)
[2024-07-06 08:08] LABS: BASOPHILS ABSOLUTE AUTO 0.03 K/uL (0.00-0.20); BASOPHILS PERCENT AUTO 0.7 % (0.0-2.0); EOSINOPHILS ABSOLUTE AUTO 0.09 K/uL (0.00-0.50); EOSINOPHILS PERCENT AUTO 2.1 % (0.0-5.0); HEMATOCRIT 37.3 % (34.0-46.0); HEMOGLOBIN 12.5 g/dL (11.7-15.5); IMMATURE GRAN ABSOLUTE AUTO 0.01 10^3/uL (0.00-0.04); IMMATURE GRAN PERCENT AUTO 0.2 % (0.0-0.4); LYMPHOCYTES ABSOLUTE AUTO 1.53 K/uL (0.50-3.50); LYMPHOCYTES PERCENT AUTO 36.5 % (10.0-50.0); MEAN CORPUSCULAR HEMOGLOBIN 29.2 pg (28.2-33.3); MEAN CORPUSCULAR HGB CONC 33.5 g/dL (31.7-36.0); MEAN CORPUSCULAR VOLUME 87.1 fL (84.0-98.0); MONOCYTES ABSOLUTE AUTO 0.33 K/uL (0.00-1.00); MONOCYTES PERCENT AUTO 7.9 % (2.0-14.0); NEUTROPHILS PERCENT AUTO 52.6 % (45.0-80.0); PLATELET COUNT,PLT 259 K/uL (150-350); RED BLOOD CELL COUNT 4.28 M/uL (3.77-5.09); RED CELL DISTRIBUTION WIDTH 12.8 % (11.2-14.1); WHITE BLOOD CELL COUNT,WBC 4.2 K/uL (4.0-10.2)
[2024-07-06 08:10] LABS: ANION GAP 7.2 meq/L (7-15)
[2024-07-06 09:30] VITALS: BP 124/88; PULSE 65
== END 2024-07-06 09:55 | disposition home or self-care (01) | DRG 247 ==
LOC: LL.MS 18:00
PROVIDERS: ADMIT Emergency Medicine; ATTEND Emergency Medicine
DX: K56.699 Other intestinal obstruction unspecified as to partial versus complete obstruction (principal); I10 Essential (primary) hypertension; K59.09 Other constipation; K21.9 Gastro-esophageal reflux disease without esophagitis; M19.90 Unspecified osteoarthritis, unspecified site; F32.A Depression, unspecified; F41.1 Generalized anxiety disorder; E83.42 Hypomagnesemia; H54.7 Unspecified visual loss; H91.90 Unspecified hearing loss, unspecified ear; Z79.82 Long term (current) use of aspirin; Z79.899 Other long term (current) drug therapy; Z88.8 Allergy status to other drugs, medicaments and biological substances; Z98.84 Bariatric surgery status; Z90.49 Acquired absence of other specified parts of digestive tract; Z87.81 Personal history of (healed) traumatic fracture; Z98.51 Tubal ligation status; Z98.890 Other specified postprocedural states
CPT/HCPCS: 36415; 74019; 80048; 80053; 83605; 83735; 85025; 99223; 99232; 99233; 99239; A9270-GY; J1650; J2270; J2470; J3475; J7030; J7120